=== PATIENT | female | born 1990 | race Caucasian/White ===

== ENCOUNTER 2016-09-30 09:29 | Emergency (ER) | payer OTHER ==
[~2016-09-30] VITALS: Ht 160 cm; Wt 78.9 kg
[2016-09-30 09:32] VITALS: Ht 160 cm; Wt 78.9 kg
[2016-09-30 10:57] LABS: ADD SCAN DIFF NO
[2016-09-30 11:06] LABS: BASOPHILS % 0.2 % (0.0-2.0); EOSINOPHILS % 0.2 % (0.0-7.0); HEMOGLOBIN 12.7 g/dl (12.0-16.0); LYMPHOCYTES # 1.6 10^3/ul (0.8-2.9); LYMPHOCYTES % 12.6 % (15.0-51.0); MEAN CORPUSCULAR HGB CONC 32.6 g/dl (32.0-37.0); MEAN PLATELET VOLUME 9.9 fl (7.4-10.4); MONOCYTE # 0.5 10^3/ul (0.3-0.9); MONOCYTES % 4.1 % (0.0-11.0); NEUTROPHIL # 10.5 10^3/ul (1.6-7.5); NEUTROPHILS % 82.4 % (39.0-77.0); PLATELET COUNT 379 10^3/UL (140-415); RED BLOOD COUNT 4.38 10^6/ul (4.20-5.40); RED CELL DISTRIBUTION WIDTH 13.7 % (11.5-14.5); WHITE BLOOD COUNT 12.8 10^3/ul (4.8-10.8)
--- NOTE | 2016-09-30 11:38 | RADRPT ---
PROCEDURE: OBSTETRICAL ULTRASOUND WITH ENDOVAGINAL IMAGES CLINICAL INDICATION: Vaginal Bleed () TECHNIQUE: Multiple sonographic images of the pelvis were obtained utilizing a transabdominal and endovaginal technique. The images were reviewed on a PACS workstation. COMPARISON: None. LMP: 08/08/2016 FINDINGS: The uterus measures 8.1 x 4.2 x 4.9 cm. There is thickening of the endometrium to 20 mm. There is no evidence of an intrauterine . The right ovary measures 2.8 x 1.6 x 1.6 cm. The left ovary measures 3.3 x 1.6 x 2.1 cm. There is no rmal vascular flow in both ovaries. No significant ovarian lesions are seen. No significant pelvic free fluid is identified. IMPRESSION: Marked thickening of the endometrium to 20 mm without evidence of an intrauterine . Find ings may be due to an early intrauterine although an ectopic cannot be entirely excluded. Short-term follow-up ultrasound and serial Beta HCG measurements are recommended for furt her evaluation. Bilateral ovaries and adnexa are unremarkable. RPTAT: EE Physician Esperanza Date Time Electronically viewed and signed by Physician Esperanza on 09/30/2016 11:38 /
[2016-09-30] MEDS ORDERED: ACET500C5 PO (11:46)
--- NOTE | 2016-09-30 11:50 | ERD ---
ER Documentation Chief Complaint Date/Time DATE: 09/30/16 TIME: 11:47 Chief Complaint with spotting today HPI This 26-year-old female presents with vaginal spotting over the last day. She has some mild suprapubic cramping. She denies fevers, vomiting. She is a G2 para 0 . She has not yet obtained care. ROS All systems reviewed and are negative except as per history of present illness. Medications Home Meds Active Scripts Acetaminophen* (Tylophen*) 500 Mg Capsule, 1 CAP PO Q6H Y for PAIN AND OR ELEVATED TEMP, #15 CAP Prov:CHEPE DORMAN MD 09/30/16 PMhx/Soc History of Surgery: No Anesthesia Reaction: No Hx Neurological Disorder: No Hx Respiratory Disorders: No Hx Cardiac Disorders: No Hx Psychiatric Problems: No Hx Miscellaneous Medical Probl: No Hx Alcohol Use: No Hx Substance Use: No Hx Tobacco Use: No Smoking Status: Never smoker Physical Exam Vitals Vital Signs Date Time Temp Pulse Resp B/P Pulse Ox O2 Delivery O2 Flow Rate FiO2 09/30/16 09:32 98.1 99 18 123/71 99 Physical Exam Const: [] Head: Atraumatic Eyes: Normal Conjunctiva ENT: Normal External Ears, Nose and Mouth. Neck: Full range of motion..~ No meningismus. Resp: Clear to auscultation bilaterally Cardio: Regular rate and rhythm, no murmurs Abd: Soft, non tender, non distended. Normal bowel sounds Skin: No petechiae or rashes Back: No midline or flank tenderness Ext: No cyanosis, or edema Neur: Awake and alert Psych: Normal Mood and Affect Result Diagram: 09/30/16 1050 Results 24 hrs Laboratory Tests Test 09/30/16 10:50 White Blood Count 12.810^3/ul Red Blood Count 4.3810^6/ul Hemoglobin 12.7g/dl Hematocrit 39.0% Mean Corpuscular Volume 89.0fl Mean Corpuscular Hemoglobin 29.0pg Mean Corpuscular Hemoglobin Concent 32.6g/dl Red Cell Distribution Width 13.7% Platelet Count 79905^3/UL Mean Platelet Volume 9.9fl Neutrophils % 82.4% Lymphocytes % 12.6% Monocytes % 4.1% Eosinophils % 0.2% Basophils % 0.2% Nucleated Red Blood Cells % 0.0/100WBC Neutrophils # 10.510^3/ul Lymphocytes # 1.610^3/ul Monocytes # 0.510^3/ul Eosinophils # 0.010^3/ul Basophils # 0.010^3/ul Nucleated Red Blood Cells # 0.010^3/ul Beta HCG, Quantitative 198.5mIU/ml Procedures/MDM Pelvic ultrasound shows thickening of the endometrium to 20 mm without visible intrauterine . Ectopic cannot be excluded. Quantitative hCG is 198. Patient is Rh+. Patient stable amatory throughout the ED course. Patient presents with signs and symptoms of first trimester vaginal bleeding with no visible intrauterine . Differential includes early normal , ectopic , incomplete or complete . She will be discharged home with further observation instructions for 2 day wound check. She should return sooner for fevers, vomiting, new worsening symptoms. Signs and symptoms are not consistent with additional causes of lower abdominal pain such as appendicitis or obstruction acute abdomen. Departure Diagnosis: Primary Impression: Vaginal bleeding in patient at less than 20 weeks ges... Condition: Stable Patient Instructions: Bleeding During Early Additional Instructions: Findings today suggests miscarriage but recommend recheck in 2 days for further evaluation and for confirmation. Recheck sooner for fevers, vomiting, new worsening symptoms. CHEPE DORMAN MD Sep 30, 2016 11:50
[2016-09-30 12:02] LABS: ADD UMIC YES; URINE BILIRUBIN (Dip) NEGATIVE (NEGATIVE); URINE BLOOD (Dip) 3+ (NEGATIVE); URINE COLOR LT. YELLOW (YELLOW); URINE GLUCOSE (Dip) NEGATIVE (NEGATIVE); URINE KETONES (Dip) NEGATIVE (NEGATIVE); URINE LEUKOCYTE ESTERASE (Dip) NEGATIVE (NEGATIVE); URINE NITRITE (Dip) NEGATIVE (NEGATIVE); URINE TOTAL PROTEIN (Dip) NEGATIVE (NEGATIVE); URINE UROBILINOGEN (Dip) 0.2 E.U./dL (0.1-1.0)
[2016-09-30 12:03] LABS: BACTERIA,URINE FEW
== END 2016-09-30 12:15 | disposition home or self-care (01) ==
LOC: FTE 09:29
DX: O20.9 Hemorrhage in early pregnancy, unspecified (principal); R10.2 Pelvic and perineal pain; Z3A.00 Weeks of gestation of pregnancy not specified
CPT/HCPCS: 36415; 76801; 76817; 81001; 84702; 85025; 86900; 86901; Z7502; 81003

== ENCOUNTER 2016-10-02 11:21 | Emergency (ER) | payer OTHER ==
[~2016-10-02] VITALS: Ht 162.6 cm; Wt 74.5 kg
[~2016-10-02 11:21] MED LIST: ACET500C5 PO
[2016-10-02 11:24] VITALS: Ht 162.6 cm; Wt 74.5 kg
--- NOTE | 2016-10-02 11:47 | ERD ---
ER Documentation Chief Complaint Date/Time DATE: 10/02/16 TIME: 11:43 Chief Complaint LABWORK REQUEST,HAD A MISCARRIAGE 2 DAYS AGO HPI Patient is a 26-year-old female who presents to the emergency department for repeat beta-hCG. Patient was seen here at [facility] ED on 09/30/16, and at that time she was noted to have a beta-hCG of 198. Pelvic ultrasound showed thickening of the endometrium to 22 mm without visible intrauterine . Patient presents today with decreased vaginal bleeding. Patient states she has vaginal spotting currently. She denies any pelvic pain or cramping. Patient denies any fevers, chills, nausea, vomiting, pain with urination, diarrhea, loss of consciousness. ROS All systems reviewed and are negative except as per history of present illness. Medications Home Meds Active Scripts Acetaminophen* (Tylophen*) 500 Mg Capsule, 1 CAP PO Q6H Y for PAIN AND OR ELEVATED TEMP, #15 CAP Prov:CHEPE DORMAN MD 09/30/16 Allergies Allergies: Coded Allergies: No Known Allergy (Unverified , 10/02/16) PMhx/Soc History of Surgery: No Anesthesia Reaction: No Hx Neurological Disorder: No Hx Respiratory Disorders: No Hx Cardiac Disorders: No Hx Psychiatric Problems: No Hx Miscellaneous Medical Probl: No Hx Alcohol Use: No Hx Substance Use: No Hx Tobacco Use: No Physical Exam Vitals Vital Signs Date Time Temp Pulse Resp B/P Pulse Ox O2 Delivery O2 Flow Rate FiO2 10/02/16 11:24 98.5 78 18 120/65 98 Physical Exam GENERAL: Well-developed, well-nourished female. Appears in no acute distress. Speaking in full sentences HEAD: Normocephalic, atraumatic. EYES: Pupils are equally reactive bilaterally. EOMs grossly intact. No conjunctival erythema. ENT: Moist mucous membranes. No uvula deviation. No kissing tonsils. NECK: Supple. No meningismus. Normal range of motion of the neck. LUNG: Clear to auscultation bilaterally. No rhonchi, wheezing, rales or coarse breath sounds. HEART: Regular rate and rhythm. No murmurs, rubs or gallops. ABDOMEN: No scars, ecchymosis or rashes noted. Soft, nontender, and nondistended. Positive bowel sounds in all four quadrants. No rebound tenderness , no guarding. (-) McBurney's point tenderness. No CVA tenderness. BACK: No midline tenderness. EXTREMITIES: Equal pulses bilaterally. No peripheral clubbing, cyanosis or edema. No unilateral leg swelling. NEUROLOGIC: Alert and oriented. Moving all four extremities without any difficulty. Normal speech. Steady gait. SKIN: Normal color. Warm and dry. No rashes or lesions. Results 24 hrs Laboratory Tests Test 10/02/16 11:50 10/02/16 11:56 Beta HCG, Quantitative 65.2mIU/ml Bedside Urine pH (LAB) 5.5 Bedside Urine Protein (LAB) 2+ Bedside Urine Glucose (UA) Negative Bedside Urine Ketones (LAB) Negative Bedside Urine Blood 3+ Bedside Urine Nitrite (LAB) Negative Bedside Urine Leukocyte Esterase (L Trace Procedures/MDM ED COURSE: The patient was stable throughout ED course. I kept the patient and/or family informed of laboratory and diagnostic imaging results throughout the ED course. DIAGNOSTIC IMAGING: Read by radiologist. DIAGNOSTIC IMAGING REPORT Patient: DEEPIKA NORTON : 1990 Age: 26 Sex: F MR #: [id number] DOS: 10/02/16 0000 Ordering MD: PERLA BROWNE PA-C Location: [facility] Room/Bed: PROCEDURE: US OB/Pelvis. CLINICAL INDICATION: Positive . Vaginal bleeding. TECHNIQUE: Multiple sonographic images of the pelvis were obtained. Transabdominal and transvaginal views of the pelvis are available for review. The images were reviewed on a PACS workstation. COMPARISON: 09/30/2016 FINDINGS: The uterus measures 8.0 x 3.9 x 5.3 cm. There is no intrauterine or gestational sac identified. Endometrial echo complex measures 6.7 mm. The right ovary measures 2.5 x 1.4 x 1 point a centimeter. Left ovary measures 2.8 x 2.0 x 1.8 cm. .The bilateral ovaries appear normal in size, shape, morphology , and flow. . No adnexal masses are seen. There is no free fluid. IMPRESSION: 1. Normal pelvic ultrasound with no intrauterine , adnexal masses or free fluid identified. If the patient has a positive test, differential includes early , recent and ectopic cannot be completely excluded. Recommend clinical and laboratory correlation and follow up if indicated. RPTAT: EE .Juventino Melendez MD, MD Date Time Electronically viewed and signed by .Juventino Melendez MD, on 10/02/2016 13:15 .L/ CC: PERLA BROWNE PA-C Medical Decision Making: This is a 26-year-old female who presents emergency department for repeat beta- hCG. Patient reported decreased vaginal bleeding and currently states she only has vaginal spotting. Patient denied any pain. Patient was seen here on at that time noted to have a beta-hCG of 198. She was noted to be Rh+. Vital signs were reviewed. Patient is afebrile. Patient is hemodynamically stable. Urine test was positive. Quantitative b-HCG today was 65. Pelvic US showed Normal pelvic ultrasound with no intrauterine , adnexal masses or free fluid identified. Given these findings, the patient's presentation is most consistent with spontaneous . I have a much lower clinical concern for ectopic , ruptured ectopic , molar , subchorionic hematoma, placental abruption, placental previa, vasa previa, uterine rupture, anembyronic . Unable to rule out incomplete at this time. I advised patient to return to the emergency department or follow-up with her OB/ [employer] in 1 week repeat beta-hCG. Discharge: At this time, patient is stable for discharge and outpatient management. I had a conversation at length with the patient about the concerns of vaginal bleeding during the 1st trimester of . Patient and/or family understands that her vaginal bleeding can be a normal finding or a sign of miscarriage. I have instructed the patient to follow-up with her OBGYN in 1-2 days for further monitoring. I have instructed the patient to promptly return to the ER at any time for any new or worsening symptoms including increased pain , nausea, vomiting, continued bleeding, weakness, syncope or fever. The patient and/or family expressed understanding of and agreement with this plan. All questions were answered. Home care instructions were provided. Departure Diagnosis: Primary Impression: Vaginal bleeding in Trimester: first trimester Qualified Code: O46.91 - Vaginal bleeding in , first trimester Condition: Stable Patient Instructions: Vaginal Bleed in Referrals: [facility] YOU HAVE RECEIVED A MEDICAL SCREENING EXAM AND THE RESULTS INDICATE THAT YOU DO NOT HAVE A CONDITION THAT REQUIRES URGENT TREATMENT IN THE EMERGENCY DEPARTMENT. FURTHER EVALUATION AND TREATMENT OF YOUR CONDITION CAN WAIT UNTIL YOU ARE SEEN IN YOUR DOCTORS OFFICE WITHIN THE NEXT 1-2 DAYS. IT IS YOUR RESPONSIBILITY TO MAKE AN APPOINTMENT FOR FOLOW-UP CARE. IF YOU HAVE A PRIMARY DOCTOR --you should call your primary doctor and schedule an appointment IF YOU DO NOT HAVE A PRIMARY DOCTOR YOU CAN CALL OUR PHYSICIAN REFERRAL HOTLINE AT IF YOU CAN NOT AFFORD TO SEE A PHYSICIAN YOU CAN CHOSE FROM THE FOLLOWING [facility] [address] [facility] [address] [facility] [address] [facility] [address] [facility] [address] [facility] [facility] [address] [facility]. [facility] YOU HAVE RECEIVED A MEDICAL SCREENING EXAM AND THE RESULTS INDICATE THAT YOU DO NOT HAVE A CONDITION THAT REQUIRES URGENT TREATMENT IN THE EMERGENCY DEPARTMENT. FURTHER EVALUATION AND TREATMENT OF YOUR CONDITION CAN WAIT UNTIL YOU ARE SEEN IN YOUR DOCTORS OFFICE WITHIN THE NEXT 1-2 DAYS. IT IS YOUR RESPONSIBILITY TO MAKE AN APPOINTMENT FOR FOLOW-UP CARE. IF YOU HAVE A PRIMARY DOCTOR --you should call your primary doctor and schedule and appointment IF YOU DO NOT HAVE A PRIMARY DOCTOR YOU CAN CALL OUR PHYSICIAN REFERRAL HOTLINE AT . IF YOU CAN NOT AFFORD TO SEE A PHYSICIAN YOU CAN CHOSE FROM THE FOLLOWING [facility] INSTITUTIONS: [facility] [address] [place] [address] [facility] [address] [place] [address] [facility] [address] [place] [address] [employer] [place] [address] [facility] [address] [place] [address] OFFICE FAX , [place] [address] [place] [address] [address] GARRISON, [place] [address] [place] [address] DR HERNANDEZ, [facility] [address], [address] [facility] [address] [address] FRIEDMAN, [facility] [address] [place] [address] [facility] [address] [place] [address] [address] [facility] [address] - [address] CLINE, DANIE [address], [place] [address] DR JEFFREY, [place] [address] [facility]. [address], [place] [address] DR KNIGHT, [facility] [address] [place], [place] [id number] Additional Instructions: Call your primary care doctor TOMORROW for an appointment during the next 1-2 days.See the doctor sooner or return here if your condition worsens before your appointment time. PERLA BROWNE PA-C Oct 02, 2016 11:47 PERLA BROWNE PA-C Oct 02, 2016 11:47
[2016-10-02 11:56] LABS: URINE BLOOD (Dip) POC 3+ (NEGATIVE)
--- NOTE | 2016-10-02 13:15 | RADRPT ---
PROCEDURE: US OB/Pelvis. CLINICAL INDICATION: Positive . Vaginal bleeding. TECHNIQUE: Multiple sonographic images of the pelvis were obtained. Transabdominal and transvagin al views of the pelvis are available for review. The images were reviewed on a PACS workstation. COMPARISON: 09/30/2016 FINDINGS: The uterus measures 8.0 x 3.9 x 5.3 cm. There is no intrauterine or gestational sac ident ified. Endometrial echo complex measures 6.7 mm. The right ovary measures 2.5 x 1.4 x 1 point a jaden timeter. Left ovary measures 2.8 x 2.0 x 1.8 cm. .The bilateral ovaries appear normal in size, sha pe, morphology, and flow. . No adnexal masses are seen. There is no free fluid. IMPRESSION: 1. Normal pelvic ultrasound with no intrauterine , adnexal masses or free fluid identified . If the patient has a positive test, differential includes early , recent and ectopic cannot be completely excluded. Recommend clinical and laboratory correlation and follow up if indicated. RPTAT: EE .Juventino Melendez MD, Date Time Electronically viewed and signed by .Juventino Melendez MD, on 10/02/2016 13:15 .L/
== END 2016-10-02 13:53 | disposition home or self-care (01) ==
LOC: FTE 11:21
DX: O20.9 Hemorrhage in early pregnancy, unspecified (principal); Z3A.00 Weeks of gestation of pregnancy not specified
CPT/HCPCS: 36415; 76801; 76817; 81003; 84702